=== PATIENT | male | born 1955 | race Caucasian/White ===

== ENCOUNTER 2018-09-23 08:27 | Observation (INO) | payer MEDICAID ==
[~2018-09-23] VITALS: Ht 165.1 cm; Wt 74.6 kg
[2018-09-23] MEDS ORDERED: SOD CHLORIDE 0.9% 1,000 ML IV STA (08:35)
[2018-09-23] MEDS ORDERED: KETOROLAC 30 MG INJ IV STA (08:35)
[2018-09-23] MEDS ORDERED: ONDANSETRON 4 MG INJ IV STA (08:35)
[2018-09-23] MEDS ORDERED: HYDROmorphONE 1 MG/ML SYG IV STA (08:35)
[2018-09-23] MEDS ORDERED: IBUP-1542 PO (10:13)
[2018-09-23] MEDS ORDERED: ONDA4TAB14 PO (10:13)
--- NOTE | 2018-09-23 10:14 | ERD ---
ER Documentation Chief Complaint Chief Complaint R FLANK PAIN SINCE THIS MORNING. NO NAUSEA NO VOMITNG. NO HEMATURIA HPI Patient is a 63-year-old male with diabetes who presents with flank pain. The patient has had flank pain for the past 2 hours. He denies fevers. He has no nausea or vomiting. He does not currently have a primary doctor. He has had no treatment as of yet. The pain is sharp in nature and comes and goes. ROS All systems reviewed and are negative except as per history of present illness. Medications Home Meds Active Scripts Ondansetron (Ondansetron Odt) 4 Mg Tab.rapdis, 4 MG PO Q6H PRN for NAUSEA AND/OR VOMITING, #10 TAB Prov:UMAIR OSMAN MD 09/23/18 Ibuprofen* (Motrin*) 600 Mg Tab, 600 MG PO Q6H PRN for PAIN AND OR ELEVATED TEMP, #30 TAB Prov:UMAIR OSMAN MD 09/23/18 Allergies Allergies: Coded Allergies: No Known Allergy (Unverified , 09/23/18) PMhx/Soc Medical and Surgical Hx: pt denies Medical Hx History of Surgery: No Anesthesia Reaction: No Hx Neurological Disorder: No Hx Respiratory Disorders: No Hx Cardiac Disorders: No Hx Psychiatric Problems: No Hx Miscellaneous Medical Probl: No Hx Alcohol Use: No Hx Substance Use: No Hx Tobacco Use: No Smoking Status: Never smoker FmHx Family History: No diabetes Physical Exam Vitals Vital Signs Date Temp Pulse Resp B/P (MAP) Pulse Ox O2 O2 Flow FiO2 Time Delivery Rate 09/23/18 98.8 77 18 158/101 99 08:31 (120) Physical Exam Const: Moderate distress Head: Atraumatic Eyes: Normal Conjunctiva ENT: Normal External Ears, Nose and Mouth. Neck: Full range of motion. No meningismus. Resp: Clear to auscultation bilaterally Cardio: Regular rate and rhythm, no murmurs Abd: Soft, non tender, non distended. Normal bowel sounds Skin: No petechiae or rashes Back: No midline or flank tenderness Ext: No cyanosis, or edema Neur: Awake and alert Psych: Normal Mood and Affect Result Diagram: 09/23/18 0847 09/23/18 0847 Results 24 hrs Laboratory Tests Test 09/23/18 08:47 White Blood Count 6.3 10^3/ul Red Blood Count 4.74 10^6/ul Hemoglobin 14.9 g/dl Hematocrit 42.0 % Mean Corpuscular Volume 88.6 fl Mean Corpuscular Hemoglobin 31.4 pg Mean Corpuscular Hemoglobin Concent 35.5 g/dl Red Cell Distribution Width 12.2 % Platelet Count 222 10^3/UL Mean Platelet Volume 10.6 fl Immature Granulocytes % 0.300 % Neutrophils % 47.4 % Lymphocytes % 37.7 % Monocytes % 8.9 % Eosinophils % 5.2 % Basophils % 0.5 % Nucleated Red Blood Cells % 0.0 /100WBC Immature Granulocytes # 0.020 10^3/ul Neutrophils # 3.0 10^3/ul Lymphocytes # 2.4 10^3/ul Monocytes # 0.6 10^3/ul Eosinophils # 0.3 10^3/ul Basophils # 0.0 10^3/ul Nucleated Red Blood Cells # 0.0 10^3/ul Urine Color YELLOW Urine Clarity CLEAR Urine pH 6.0 Urine Specific [place] 1.011 Urine Ketones NEGATIVE mg/dL Urine Nitrite NEGATIVE mg/dL Urine Bilirubin NEGATIVE mg/dL Urine Urobilinogen NEGATIVE mg/dL Urine Leukocyte Esterase NEGATIVE Edgardo/ul Urine Hemoglobin NEGATIVE mg/dL Urine Glucose 3+ mg/dL Urine Total Protein NEGATIVE mg/dl Sodium Level 140 mmol/L Potassium Level 4.4 mmol/L Chloride Level 103 mmol/L Carbon Dioxide Level 25 mmol/L Anion Gap 12 Blood Urea Nitrogen 17 mg/dl Creatinine 0.67 mg/dl Est Glomerular Filtrat Rate mL/min > 60 mL/min Glucose Level 323 mg/dl Calcium Level 9.9 mg/dl Total Bilirubin 0.3 mg/dl Direct Bilirubin 0.00 mg/dl Indirect Bilirubin 0.3 mg/dl Aspartate Amino Transf (AST/SGOT) 27 IU/L Alanine Aminotransferase (ALT/SGPT) 47 IU/L Alkaline Phosphatase 125 IU/L Total Protein 7.2 g/dl Albumin 4.2 g/dl Globulin 3.00 g/dl Albumin/Globulin Ratio 1.40 Lipase 50 U/L Current Medications Medications Dose Sig/[place]han Start Time Status Last (Trade) Ordered Route PRN Stop Time Admin Dose Reason Admin Sodium 1,000 ml @ Q1H STAT 09/23/18 DC 09/23/18 Chloride 1,000 mls/hr IV 08:35 09:03 09/23/18 09:34 1 mg ONCE STAT 09/23/18 DC 09/23/18 Hydromorphone IV 08:35 09:04 HCl 09/23/18 08:36 (Dilaudid) Ondansetron 4 mg ONCE STAT 09/23/18 DC 09/23/18 HCl (Zofran IV 08:35 09:04 Inj) 09/23/18 08:36 Ketorolac 30 mg ONCE STAT 09/23/18 DC 09/23/18 Tromethamine IV 08:35 09:05 (Toradol) 09/23/18 08:36 1 mg ONCE STAT 09/23/18 DC 09/23/18 Hydromorphone IV 11:13 11:31 HCl 09/23/18 11:14 (Dilaudid) Procedures/MDM EKG read by me: Rate/Rhythm: Regular rate and rhythm at a rate of 78 Intervals: Normal Impression: No evidence of ischemia or arrhythmia CT abdomen and pelvis read by radiology. Patient is a 63-year-old male with diabetes who presents with flank pain. Laboratory studies were basically normal. CT scan shows likely recently passed kidney stone. I see no signs of surgical process at this time. I doubt appendicitis, cholecystitis, pancreatitis, bowel obstruction. The patient will be discharged home to follow-up with eye doctor within 2 to 3 days. The patient will be given a prescription for pain medication and Flomax. The patient can return for worsening symptoms. Departure Diagnosis: Primary Impression: Kidney stone Additional Impression: Flank pain Condition: Fair Patient Instructions: Kidney Stone W/ Colic Referrals: SUSIE TRINH MD Additional Instructions: Llame al doctor MAANA y kayli mer MELCHOR PARA DENTRO DE 2-3 ALDRICH.Dgale a la secretaria que nosotros le instruimos hacer esta melchor.Avise o llame si garcia condicin se empeora antes de la melchor. Regresa aqui si peor o no mejor. UMAIR OSMAN MD Sep 23, 2018 10:14
[2018-09-23] MEDS ORDERED: HYDROmorphONE 2 MG/ML SYG IV STA (11:13)
[2018-09-23] MEDS ORDERED: NALO4SPR NS (12:36)
[2018-09-23] MEDS ORDERED: HYDR-3980 PO (12:36)
[2018-09-23] MEDS ORDERED: morphine 4 MG/ML VIAL IV STA (13:01)
[2018-09-23] MEDS ORDERED: HYDROCODONE/APAP (5/325) TAB PO PRN (15:00)
[2018-09-23] MEDS ORDERED: ALBUTEROL/IPRATROPIUM (NEB) 3 ML AMP HHN PRN (15:00)
[2018-09-23] MEDS: CEFTRIAXONE 1 GM/50 ML (PMX) 50 ML IVPB SCH ×2 (15:00→21:06)
[2018-09-23] MEDS ORDERED: NACL 0.9% 3 ML SYG IV SCH (15:00)
[2018-09-23] MEDS ORDERED: ONDANSETRON 4 MG INJ IV PRN (15:00)
[2018-09-23] MEDS ORDERED: NITROGLYCERIN (SL) 0.4 MG TAB SL PRN (15:00)
[2018-09-23] MEDS ORDERED: DOCUSATE SODIUM 100 MG CAP PO PRN (15:00)
[2018-09-23] MEDS ORDERED: hydrALAzine 20 MG INJ IV PRN (15:00)
[2018-09-23] MEDS ORDERED: LORAZEPAM 2 MG INJ IV PRN (15:00)
[2018-09-23] MEDS ORDERED: morphine 2 MG INJ IV PRN (15:00)
[2018-09-23] MEDS ORDERED: HYDROCODONE/APAP (10/325) TAB PO PRN (15:00)
[2018-09-23] MEDS ORDERED: ACETAMINOPHEN 325 MG TAB PO PRN (15:00)
[2018-09-23] MEDS ORDERED: MAGNESIUM HYDROXIDE 30ML CUP PO PRN (15:00)
[2018-09-23] MEDS ORDERED: SOD CHLORIDE 0.9% 100 ML ONE (15:48)
[2018-09-23] MEDS ORDERED: IOHEXOL 300MG/ML 150 ML BTL ONE (15:48)
--- NOTE | 2018-09-23 16:10 | HP ---
DATE OF ADMISSION: 09/23/2018 CHIEF COMPLAINT: Sudden onset right flank pain. HISTORY OF PRESENT ILLNESS: A 63-year-old male with past medical history of diabetes who presents wi th right flank pain. Symptoms occurred suddenly earlier today about 2 or 3 hours prior to admission. The patient apparently had never had this kind of pain before. Denied any nausea, vomiting, no fev ers or chills, no upper or lower GI bleeding, no hematuria or dysuria, no diarrhea or constipation. He described the pain as sharp in nature, coming and going. When he came in today, he had a CT scan abdomen and pelvis performed that showed mild right hydronephrosis and hydroureter with abrupt taperi ng of the distal ureter at the pelvic brim, but no renal, ureteral or bladder calculi were seen. CT urogram is recommended for further evaluation and that has been ordered now and a call has been made out to the urologist to come evaluate the patient as the patient may either have a retained stone or may have already passed the stone. 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 Short interval foll owup CT of the chest is recommended to ensure stability. The patient was given pain control medicati ons and IV fluids in the ER as well today. PAST MEDICAL HISTORY: As stated above. ALLERGIES: No known drug allergies. MEDICATIONS AT HOME: 1. [place] 10/325 q.6h. p.r.n. 2. Motrin 600 mg q.6h. p.r.n. 3. Zofran 4 mg q.6h. p.r.n. PAST SURGICAL HISTORY: Apparently none. SOCIAL HISTORY: Negative for smoking or drinking, or IV drug abuse. FAMILY HISTORY: Noncontributory. PHYSICAL EXAMINATION: VITAL SIGNS: T-max 98.8, pulse 77, respirations 18, blood pressure 158/101, satting at 99% on room a ir. GENERAL: The patient is lying in bed, but appears to be in mild to moderate distress. HEENT: Pupils are equal, round, reactive to light. Extraocular muscles intact. NECK: Supple, no thyromegaly. LUNGS: Clear to auscultation bilaterally. CARDIOVASCULAR: S1, S2 heard. No rubs or gallops. ABDOMEN: Soft, nontender, nondistended. Normal bowel sounds. No rebound or guarding. There is kelvin e tenderness to palpation in the right flank area. MUSCULOSKELETAL: No lower extremity edema bilaterally. NEUROLOGIC: No focal deficits. LABORATORIES: CBC is normal. The comprehensive metabolic panel was normal except the sugars are hig h at 323. Lipase is normal. UA shows negative nitrites, negative leukocyte esterase, but there is 3 + glucose. We mentioned the CT abdomen and pelvis findings. ASSESSMENT AND PLAN: A 63-year-old male coming in with sudden onset right flank pain, prior history of diabetes, rule out renal calculi versus others. 1. Right flank pain, possibly secondary to either retained stone or passing stone recently. The pat ient is still having significant pain symptoms. We will admit the patient, put him on pain control m edications, IV fluids, antiemetic medications. Keep n.p.o. except meds for now. Follow up TSH, A1c, lipid panel. We will obtain a urology consult as well. Consider PT consult. More importantly, we will order CT urogram to further investigate his initial CT scan findings. Keep patient on broad spe ctrum antibiotics. 2. Diabetes. Sugars appeared slightly elevated on admission. Follow up A1c. Put him on sliding sc gabo insulin. Consider Lantus as well. 3. Lovenox. 4. DVT prophylaxis, SCDs. Dictated By: MILLICENT DELVALLE Conf#: [id number] DID#: [id number]
[2018-09-23] MEDS ORDERED: GLUCOSE GEL 15 GRAM TUBE PO PRN ×2 (16:30)
[2018-09-23] MEDS ORDERED: GLUCOSE GEL 15 GRAM TUBE BUCCAL PRN (16:30)
[2018-09-23] MEDS ORDERED: DEXTROSE 50% 50 ML SYRINGE IV PRN ×2 (16:30)
[2018-09-23] MEDS ORDERED: GLUCAGON 1 MG INJ IM PRN (16:30)
--- NOTE | 2018-09-23 20:14 | CONS ---
Assessment/Plan Assessment/Plan Hospital Course (Demo Recall) 63-year-old male with past medical history of diabetes presented with right flank pain. Symptoms occurred suddenly about 2 to 3 hours prior to admission. No similar pain before. The patient denies any nausea or vomiting and there is no fever or chills. He denies any hematuria or dysuria. No diarrhea or constipation. He described the pain as sharp in nature, coming and going. The pain is worse with movement. As a matter of fact it started when he was trying to tie his shoe laces. Any twisting or bending will cause the pain. CT scan of the abdomen and pelvis was done and reported as: 1. 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 No evidence of obstructive ureteral stone or mass is seen. There is no urolithiasis or evidence of enhancing urinary mass. 2. Mildly enlarged prostate - correlate with PSA level. 3. Small bilateral fat containing inguinal hernias, without incarceration. Urine analysis was negative except for 3+ glucose I do not think he had a stone or passed the stone. The mild hydronephrosis is because of the duplication of the collecting system. If there was a stone or if he did pass a stone one would expect the urine to have some occult blood in it. His pain is more of muscular pain and it is worse with movements, bending, twisting. Did recommend to give him muscle relaxant and ibuprofen. Consultation Date/Type/Reason Admit Date/Time Date of Consultation: Sep 23, 2018 Type of Consult Urology Reason for Consultation Right flank pain Requesting Provider: MILLICENT HARRINGTON Date/Time of Note DATE: 09/23/18 TIME: 20:03 Hx of Present Illness 63-year-old male with past medical history of diabetes presented with right flank pain. Symptoms occurred suddenly about 2 to 3 hours prior to admission. No similar pain before. The patient denies any nausea or vomiting and there is no fever or chills. He denies any hematuria or dysuria. No diarrhea or constipation. He described the pain as sharp in nature, coming and going. The pain is worse with movement. As a matter of fact it started when he was trying to tie his shoe laces. Any twisting or bending will cause the pain. CT scan of the abdomen and pelvis was done and reported as: 1. 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 No evidence of obstructive ureteral stone or mass is seen. There is no urolithiasis or evidence of enhancing urinary mass. 2. Mildly enlarged prostate - correlate with PSA level. 3. Small bilateral fat containing inguinal hernias, without incarceration. Urine analysis was negative except for 3+ glucose. Constitutional: no complaints Eyes: no complaints ENT: no complaints Respiratory: no complaints; No wheezing Cardiovascular: No chest pain Gastrointestinal: pain (Right flank); No nausea, No vomiting Genitourinary: flank pain; No dysuria, No hematuria Musculoskeletal: back pain (Right side, pain is worse with movements, bending twisting and even trying to take off his pants would cause him pain.) Skin: no complaints Neurologic: no complaints Endocrine: no complaints Psychological: no complaints Immunologic: no complaints Past Medical History Medical History: diabetes Home Meds Active Scripts Naloxone HCl nasal spray (Narcan 4 mg/0.1 mL nasal) 4 Mg [place], 4 MG NS .Q2MIN PRN for OPIOID OVERDOSE, #2 SPRAY [place] entire contents in one nostril, may repeat in alternate nostril in 2-3 minutes if no or minimal response Prov:UMAIR OSMAN MD 09/23/18 Hydrocodone/Acetaminophen ([place] 10-325 Tablet) 1 Each Tablet, 1 TAB PO Q6H PRN for PAIN, #7 TAB Prov:UMAIR OSMAN MD 09/23/18 Ondansetron (Ondansetron Odt) 4 Mg Tab.rapdis, 4 MG PO Q6H PRN for NAUSEA AND/OR VOMITING, #10 TAB Prov:UMAIR OSMAN MD 09/23/18 Ibuprofen* (Motrin*) 600 Mg Tab, 600 MG PO Q6H PRN for PAIN AND OR ELEVATED TEMP, #30 TAB Prov:UMAIR OSMAN MD 09/23/18 Medications Current Medications IV Flush (NS 3 ml) 3 ml PER PROTOCOL IV ; Start 09/23/18 at 15:00 Ondansetron HCl (Zofran Inj) 4 mg Q6H PRN IV NAUSEA/VOMITING; Start 09/24/18 at 15:00 Acetaminophen (Tylenol Tab) 650 mg Q6H PRN PO .PAIN 1-3 OR TEMP; Start 09/24/18 at 15:00 Acetaminophen/ Hydrocodone Bitart ([place] (5/325)) 1 tab Q6H PRN PO .MOD PAIN 4- 6; Start 09/23/18 at 15:00 Morphine Sulfate (morphine) 2 mg Q4H PRN IV .SEVERE PAIN 7-10; Start 09/23/18 at 15:00 Docusate Sodium (Colace) 100 mg Q12H PRN PO .CONSTIPATION; Start 09/23/18 at 15:00 Magnesium Hydroxide (Milk Of Mag) 30 ml DAILY PRN PO .CONSTIPATION; Start 09/23/18 at 15:00 Lorazepam (Ativan) 0.5 mg Q6H PRN IV ANXIETY; Start 09/23/18 at 15:00 Sodium Chloride 1,000 ml @ 100 mls/hr Q10H IV ; Start 09/23/18 at 14:48 Albuterol/ Ipratropium (Duoneb) 3 ml Q4H RESP THERAPY PRN HHN SHORTNESS OF BREATH; Start 09/23/18 at 15:00 Hydralazine HCl (Apresoline) 10 mg Q6H PRN IV ELEVATED BP: SBP > 180; Start 09/23/18 at 15:00 Ceftriaxone Sodium 50 ml @ 100 mls/hr Q24H IVPB ; Start 09/23/18 at 15:00 Nitroglycerin (Nitroglycerin (Sl Tab) 0.4 Mg) 1 tab Q5M PRN SL ANGINA; Start 09/23/18 at 15:00 Acetaminophen/ Hydrocodone Bitart ([place] (10325)) 1 tab Q6H PRN PO SEVERE PAIN LEVEL 7-10; Start 09/23/18 at 15:00 Diagnostic Test (Pha) (Accu-Chek) 1 ea 02 XX ; Start 09/24/18 at 02:00 Insulin Aspart (Novolog Insulin Pen) NOVOLOG *MILD* ALGORI... Q4 SC ; Start 09/23/18 at 17:00 Miscellaneous Information 1 ea NOTE XX ; Start 09/23/18 at 16:30 Glucose (Glutose) 15 gm Q15M PRN PO DECREASED GLUCOSE; Start 09/23/18 at 16:30 Glucose (Glutose) 22.5 gm Q15M PRN PO DECREASED GLUCOSE; Start 09/23/18 at 16:30 Dextrose (D50w Syringe) 25 ml Q15M PRN IV DECREASED GLUCOSE; Start 09/23/18 at 16:30 Dextrose (D50w Syringe) 50 ml Q15M PRN IV DECREASED GLUCOSE; Start 09/23/18 at 16:30 Glucagon (Glucagen) 1 mg Q15M PRN IM DECREASED GLUCOSE; Start 09/23/18 at 16:30 Glucose (Glutose) 15 gm Q15M PRN BUCCAL DECREASED GLUCOSE; Start 09/23/18 at 16:30 Allergies: Coded Allergies: No Known Allergy (Unverified , 09/23/18) Past Surgical History Past Surgical Hx: other (Left inguinal hernia repair) Social History Alcohol Use: rarely Smoking Status: Light tobacco smoker (Smokes about 5 cigarettes a day) Drug Use: none Exam/Review of Systems Exam Vitals Vital Signs Date Temp Pulse Resp B/P (MAP) Pulse Ox O2 O2 Flow FiO2 Time Delivery Rate 09/23/18 68 16 115/75 98 Room Air 18:59 (88) 09/23/18 98.8 2.0 18:00 Constitutional: alert, oriented Psych: no complaints Head: normocephalic Eyes: nl conjunctiva ENMT: nl external ears & nose Neck: supple Respiratory: normal air movement; No wheezing Cardiovascular: No jugular venous distention (JVD) Gastrointestinal: soft Genitourinary - Male: nl penis, nl scrotum Musculoskeletal: other (Right flank area pain that is worse with movement, bending, twisting.) Extremities: No calf tenderness Neurological: nl mental status Skin: nl turgor Results Result Diagram: 09/23/18 0847 09/23/18 0847 Results 24hrs Laboratory Tests Test 09/23/18 08:47 White Blood Count 6.3 Red Blood Count 4.74 Hemoglobin 14.9 Hematocrit 42.0 Mean Corpuscular Volume 88.6 Mean Corpuscular Hemoglobin 31.4 Mean Corpuscular Hemoglobin Concent 35.5 Red Cell Distribution Width 12.2 Platelet Count 222 Mean Platelet Volume 10.6 H Immature Granulocytes % 0.300 Neutrophils % 47.4 Lymphocytes % 37.7 Monocytes % 8.9 Eosinophils % 5.2 Basophils % 0.5 Nucleated Red Blood Cells % 0.0 Immature Granulocytes # 0.020 Neutrophils # 3.0 Lymphocytes # 2.4 Monocytes # 0.6 Eosinophils # 0.3 Basophils # 0.0 Nucleated Red Blood Cells # 0.0 Urine Color YELLOW Urine Clarity CLEAR Urine pH 6.0 Urine Specific [place] 1.011 Urine Ketones NEGATIVE Urine Nitrite NEGATIVE Urine Bilirubin NEGATIVE Urine Urobilinogen NEGATIVE Urine Leukocyte Esterase NEGATIVE Urine Hemoglobin NEGATIVE Urine Glucose 3+ H Urine Total Protein NEGATIVE Sodium Level 140 Potassium Level 4.4 Chloride Level 103 Carbon Dioxide Level 25 Anion Gap 12 Blood Urea Nitrogen 17 Creatinine 0.67 Est Glomerular Filtrat Rate mL/min > 60 Glucose Level 323 H Calcium Level 9.9 Total Bilirubin 0.3 Direct Bilirubin 0.00 Indirect Bilirubin 0.3 Aspartate Amino Transf (AST/SGOT) 27 Alanine Aminotransferase (ALT/SGPT) 47 Alkaline Phosphatase 125 H Total Protein 7.2 Albumin 4.2 Globulin 3.00 Albumin/Globulin Ratio 1.40 Lipase 50 Free Thyroxine 1.[address] scan of the abdomen and pelvis: 1. 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 No evidence of obstructive ureteral stone or mass is seen. There is no urolithiasis or evidence of enhancing urinary mass. 2. Mildly enlarged prostate - correlate with PSA level. 3. Small bilateral fat containing inguinal hernias, without incarceration Medications Medication Current Medications IV Flush (NS 3 ml) 3 ml PER PROTOCOL IV ; Start 09/23/18 at 15:00 Ondansetron HCl (Zofran Inj) 4 mg Q6H PRN IV NAUSEA/VOMITING; Start 09/24/18 at 15:00 Acetaminophen (Tylenol Tab) 650 mg Q6H PRN PO .PAIN 1-3 OR TEMP; Start 09/24/18 at 15:00 Acetaminophen/ Hydrocodone Bitart ([place] (5/325)) 1 tab Q6H PRN PO .MOD PAIN 4- 6; Start 09/23/18 at 15:00 Morphine Sulfate (morphine) 2 mg Q4H PRN IV .SEVERE PAIN 7-10; Start 09/23/18 at 15:00 Docusate Sodium (Colace) 100 mg Q12H PRN PO .CONSTIPATION; Start 09/23/18 at 15:00 Magnesium Hydroxide (Milk Of Mag) 30 ml DAILY PRN PO .CONSTIPATION; Start 09/23/18 at 15:00 Lorazepam (Ativan) 0.5 mg Q6H PRN IV ANXIETY; Start 09/23/18 at 15:00 Sodium Chloride 1,000 ml @ 100 mls/hr Q10H IV ; Start 09/23/18 at 14:48 Albuterol/ Ipratropium (Duoneb) 3 ml Q4H RESP THERAPY PRN HHN SHORTNESS OF BREATH; Start 09/23/18 at 15:00 Hydralazine HCl (Apresoline) 10 mg Q6H PRN IV ELEVATED BP: SBP > 180; Start 09/23/18 at 15:00 Ceftriaxone Sodium 50 ml @ 100 mls/hr Q24H IVPB ; Start 09/23/18 at 15:00 Nitroglycerin (Nitroglycerin (Sl Tab) 0.4 Mg) 1 tab Q5M PRN SL ANGINA; Start 09/23/18 at 15:00 Acetaminophen/ Hydrocodone Bitart ([place] (10325)) 1 tab Q6H PRN PO SEVERE PAIN LEVEL 7-10; Start 09/23/18 at 15:00 Diagnostic Test (Pha) (Accu-Chek) 1 ea 02 XX ; Start 09/24/18 at 02:00 Insulin Aspart (Novolog Insulin Pen) NOVOLOG *MILD* ALGORI... Q4 SC ; Start 09/23/18 at 17:00 Miscellaneous Information 1 ea NOTE XX ; Start 09/23/18 at 16:30 Glucose (Glutose) 15 gm Q15M PRN PO DECREASED GLUCOSE; Start 09/23/18 at 16:30 Glucose (Glutose) 22.5 gm Q15M PRN PO DECREASED GLUCOSE; Start 09/23/18 at 16:30 Dextrose (D50w Syringe) 25 ml Q15M PRN IV DECREASED GLUCOSE; Start 09/23/18 at 16:30 Dextrose (D50w Syringe) 50 ml Q15M PRN IV DECREASED GLUCOSE; Start 09/23/18 at 16:30 Glucagon (Glucagen) 1 mg Q15M PRN IM DECREASED GLUCOSE; Start 09/23/18 at 16:30 Glucose (Glutose) 15 gm Q15M PRN BUCCAL DECREASED GLUCOSE; Start 09/23/18 at 16:30 SUSIE TRINH MD Sep 23, 2018 20:13
[2018-09-23 20:20] VITALS: BP 131/71; PULSE 73; RESP 18
[2018-09-23] MEDS: INSULIN ASPART [NOVOLOG] 3 ML PEN SC SCH ×2 (20:20→22:17)
[2018-09-23] MEDS: SOD CHLORIDE 0.9% 1,000 ML IV SCH ×2 (20:20→20:40)
[2018-09-23 20:53] VITALS: Ht 165.1 cm; Wt 74.6 kg
[2018-09-23] MEDS: CYCLOBENZAPRINE 10 MG TAB PO SCH (21:48)
[2018-09-23] MEDS: IBUPROFEN 600 MG TAB PO SCH (21:51)
[2018-09-24] MEDS ORDERED: ACCU-CHEK XX SCH (02:00)
[2018-09-24 03:10] VITALS: BP 115/59; PULSE 61; RESP 18
[2018-09-24] MEDS: CYCLOBENZAPRINE 10 MG TAB PO SCH ×2 (05:35→13:24)
[2018-09-24] MEDS: IBUPROFEN 600 MG TAB PO SCH ×3 (05:36→13:01)
[2018-09-24 07:06] VITALS: BP 120/56; PULSE 53; RESP 16
[2018-09-24] MEDS: SOD CHLORIDE 0.9% 1,000 ML IV SCH ×2 (07:21→10:48)
[2018-09-24] MEDS: INSULIN ASPART [NOVOLOG] 3 ML PEN SC SCH ×2 (09:27→13:21)
--- NOTE | 2018-09-24 12:23 | CONS ---
Consult Date/Type/Reason Admit Date/Time Sep 23, 2018 at 14:32 Initial Consult Date 09/23/18 Type of Consultation: Urology Reason for Consultation Right flank pain Requesting Provider: MILLICENT HARRINGTON Date/Time of Note DATE: 09/24/18 TIME: 12:19 Subjective Patient feeling much better and presently he denies having any pain. Objective Vitals Vital Signs Date Temp Pulse Resp B/P (MAP) Pulse Ox O2 O2 Flow FiO2 Time Delivery Rate 09/24/18 98.1 53 16 120/56 100 Room Air 07:06 (77) 09/23/18 2.0 18:00 Intake and Output 09/23/18 09/23/18 09/24/18 1515:00 23:00 07:00 IntakeIntake Total 170 ml 920 ml OutputOutput Total 600 ml BalanceBalance -430 ml 920 ml Exam No flank tenderness, abdomen is soft. Results/Medications Result Diagram: 09/24/18 0425 09/24/18 0425 Results 24 hrs Laboratory Tests Test 09/23/18 21:47 09/24/18 01:27 09/24/18 04:25 09/24/18 08:52 Bedside Glucose 231 H 249 H 196 White Blood Count 7.4 Red Blood Count 4.22 L Hemoglobin 13.2 L Hematocrit 37.6 L Mean Corpuscular 89.1 Volume Mean Corpuscular 31.3 Hemoglobin Mean Corpuscular 35.1 Hemoglobin Concent Red Cell 12.8 Distribution Width Platelet Count 201 Mean Platelet Volume 11.1 H Immature 0.300 Granulocytes % Neutrophils % 49.0 Lymphocytes % 37.4 Monocytes % 7.5 Eosinophils % 5.3 Basophils % 0.5 Nucleated Red Blood 0.0 Cells % Immature 0.020 Granulocytes # Neutrophils # 3.6 Lymphocytes # 2.8 Monocytes # 0.6 Eosinophils # 0.4 Basophils # 0.0 Nucleated Red Blood 0.0 Cells # Sodium Level 139 Potassium Level 4.1 Chloride Level 107 Carbon Dioxide Level 26 Anion Gap 6 Blood Urea Nitrogen 20 Creatinine 0.66 Est Glomerular > 60 Filtrat Rate mL/min Glucose Level 247 H Hemoglobin A1c 10.6 H Calcium Level 8.4 Phosphorus Level 3.6 Magnesium Level 1.9 Triglycerides Level 236 H Cholesterol Level 107 LDL Cholesterol, 39 Calculated HDL Cholesterol 21 L Cholesterol/HDL 5.0 Ratio Thyroid Stimulating 3.530 Hormone (TSH) [place] Meds Active Scripts Naloxone HCl nasal spray (Narcan 4 mg/0.1 mL nasal) 4 Mg [place], 4 MG NS .Q2MIN PRN for OPIOID OVERDOSE, #2 SPRAY [place] entire contents in one nostril, may repeat in alternate nostril in 2-3 minutes if no or minimal response Prov:UMAIR OSMAN MD 09/23/18 Hydrocodone/Acetaminophen ([place] 10-325 Tablet) 1 Each Tablet, 1 TAB PO Q6H PRN for PAIN, #7 TAB Prov:UMAIR OSMAN MD 09/23/18 Ondansetron (Ondansetron Odt) 4 Mg Tab.rapdis, 4 MG PO Q6H PRN for NAUSEA AND/OR VOMITING, #10 TAB Prov:UMAIR OSMAN MD 09/23/18 Ibuprofen* (Motrin*) 600 Mg Tab, 600 MG PO Q6H PRN for PAIN AND OR ELEVATED TEMP, #30 TAB Prov:UMAIR OSMAN MD 09/23/18 Medications Current Medications IV Flush (NS 3 ml) 3 ml PER PROTOCOL IV ; Start 09/23/18 at 15:00 Ondansetron HCl (Zofran Inj) 4 mg Q6H PRN IV NAUSEA/VOMITING; Start 09/24/18 at 15:00 Acetaminophen (Tylenol Tab) 650 mg Q6H PRN PO .PAIN 1-3 OR TEMP; Start 09/24/18 at 15:00 Acetaminophen/ Hydrocodone Bitart ([place] (5/325)) 1 tab Q6H PRN PO .MOD PAIN 4- 6; Start 09/23/18 at 15:00 Morphine Sulfate (morphine) 2 mg Q4H PRN IV .SEVERE PAIN 7-10; Start 09/23/18 at 15:00 Docusate Sodium (Colace) 100 mg Q12H PRN PO .CONSTIPATION; Start 09/23/18 at 15:00 Magnesium Hydroxide (Milk Of Mag) 30 ml DAILY PRN PO .CONSTIPATION; Start 09/23/18 at 15:00 Lorazepam (Ativan) 0.5 mg Q6H PRN IV ANXIETY; Start 09/23/18 at 15:00 Sodium Chloride 1,000 ml @ 100 mls/hr Q10H IV Last administered on 09/24/18at 07:21; Admin Dose 100 MLS/HR; Start 09/23/18 at 14:48 Albuterol/ Ipratropium (Duoneb) 3 ml Q4H RESP THERAPY PRN HHN SHORTNESS OF BREATH; Start 09/23/18 at 15:00 Hydralazine HCl (Apresoline) 10 mg Q6H PRN IV ELEVATED BP: SBP > 180; Start 09/23/18 at 15:00 Ceftriaxone Sodium 50 ml @ 100 mls/hr Q24H IVPB Last administered on 09/23/18at 21:06; Admin Dose 100 MLS/HR; Start 09/23/18 at 15:00 Nitroglycerin (Nitroglycerin (Sl Tab) 0.4 Mg) 1 tab Q5M PRN SL ANGINA; Start 09/23/18 at 15:00 Acetaminophen/ Hydrocodone Bitart ([place] (10325)) 1 tab Q6H PRN PO SEVERE PAIN LEVEL 7-10 Last administered on 09/23/18at 21:06; Admin Dose 1 TAB; Start 09/23/18 at 15:00 Diagnostic Test (Pha) (Accu-Chek) 1 ea 02 XX ; Start 09/24/18 at 02:00 Miscellaneous Information 1 ea NOTE XX ; Start 09/23/18 at 16:30 Glucose (Glutose) 15 gm Q15M PRN PO DECREASED GLUCOSE; Start 09/23/18 at 16:30 Glucose (Glutose) 22.5 gm Q15M PRN PO DECREASED GLUCOSE; Start 09/23/18 at 16:30 Dextrose (D50w Syringe) 25 ml Q15M PRN IV DECREASED GLUCOSE; Start 09/23/18 at 16:30 Dextrose (D50w Syringe) 50 ml Q15M PRN IV DECREASED GLUCOSE; Start 09/23/18 at 16:30 Glucagon (Glucagen) 1 mg Q15M PRN IM DECREASED GLUCOSE; Start 09/23/18 at 16:30 Glucose (Glutose) 15 gm Q15M PRN BUCCAL DECREASED GLUCOSE; Start 09/23/18 at 16:30 Cyclobenzaprine HCl (Flexeril) 10 mg Q8 PO Last administered on 09/24/18at 05:35; Admin Dose 10 MG; Start 09/23/18 at 22:00 Ibuprofen (Motrin) 600 mg Q6 PO Last administered on 09/24/18at 05:36; Admin Dose 600 MG; Start 09/23/18 at 21:00 Insulin Aspart (Novolog Insulin Pen) NOVOLOG *MILD* ALGORITHM WITH MEALS BEDTIME SC Last administered on 09/24/18at 09:27; Admin Dose 2 UNIT; Start 09/24/18 at 07:50 Assessment/Plan Hospital Course (Demo Recall) 63-year-old male with past medical history of diabetes presented with right flank pain. Symptoms occurred suddenly about 2 to 3 hours prior to admission. No similar pain before. The patient denies any nausea or vomiting and there is no fever or chills. He denies any hematuria or dysuria. No diarrhea or constipation. He described the pain as sharp in nature, coming and going. The pain is worse with movement. As a matter of fact it started when he was trying to tie his shoe laces. Any twisting or bending will cause the pain. CT scan of the abdomen and pelvis was done and reported as: 1. 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 No evidence of obstructive ureteral stone or mass is seen. There is no urolithiasis or evidence of enhancing urinary mass. 2. Mildly enlarged prostate - correlate with PSA level. 3. Small bilateral fat containing inguinal hernias, without incarceration. Urine analysis was negative except for 3+ glucose I do not think he had a stone or passed the stone. The mild hydronephrosis is because of the duplication of the collecting system. If there was a stone or if he did pass a stone one would expect the urine to have some occult blood in it. His pain is more of muscular pain and it is worse with movements, bending, twisting. The patient was started on muscle relaxant and ibuprofen and he is feeling much better. In fact he denies having any pain now and asking if he is going to be discharged. The urine cultures showed no growth. Urologically he is okay and may be discharged. SUSIE TRINH MD Sep 24, 2018 12:23
--- NOTE | 2018-09-24 13:57 | PDOCDIS ---
Discharge Instructions CONDITION [id number] Patient Condition: [id number] Stable HOME CARE INSTRUCTIONS: [id number] Diet Instructions: [id number] Low Fat /Cholesterol ACTIVITY: [id number] Activity Restrictions: [id number] Slowly Increase Activity Rest between Activity Avoid heavy lifting FOLLOW UP/APPOINTMENTS Follow-up Plan Please take your medications as prescribed, see her doctor in the clinic in the next 1 week. MILLICENT HARRINGTON Sep 24, 2018 13:57
[2018-09-24] MEDS ORDERED: METF-480 PO (14:00)
[2018-09-24] MEDS ORDERED: CYCL10TA7 PO (14:00)
[2018-09-24] MEDS ORDERED: IBUP-1542 PO (14:00)
--- NOTE | 2018-09-24 14:11 | DS ---
Date/Time of Note Date/Time of Note DATE: 09/24/18 TIME: 14:07 Discharge Summary Admission/Discharge Info Admit Date/Time Sep 23, 2018 at 14:32 Discharge Date/Time Discharge Diagnosis 1. Right flank pain-likely secondary musculoskeletal pain, improving with ib uprofen and Flexeril. CT imaging studies did not show any acute findings including no signs of kidney stones. Urine infectious work-up negative. 2. Diabetes-A1c equals 10.6 -started on metformin Patient Condition: Stable Procedures A:CT Abdomen and Pelvis without contrast. 1. Mild right hydronephrosis and hydroureter with abrupt tapering of the distal ureter at the pelvic brim. No renal, ureteral or bladder calculi are seen. CT urogram is recommended for further evaluation. 2. Duplex left renal collecting system. The ureters appear to converge distally. No hydronephrosis or hydroureter is seen. 3. Colonic diverticulosis. 4. Small bilateral fat containing inguinal hernias. 5. 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 Short interval follow-up CT of the chest is recommended to ensure stability. B: CT Abdomen and Pelvis without and with IV contrast - CT Urogram IMPRESSION: 1. 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 No evidence of obstructive ureteral stone or mass is seen. There is no urolithiasis or evidence of enhancing urinary mass. 2. Mildly enlarged prostate - correlate with PSA level. 3. Small bilateral fat containing inguinal hernias, without incarceration. Hx of Present Illness 63-year-old male with past medical history of diabetes who presents with right flank pain. Symptoms occurred suddenly earlier today about 2 or 3 hours prior to admission. The patient apparently had never had this kind of pain before. Denied any nausea, vomiting, no fevers or chills, no upper or lower GI bleeding, no hematuria or dysuria, no diarrhea or constipation. He described the pain as sharp in nature, coming and going. When he came in today, he had a CT scan abdomen and pelvis performed that showed mild right hydronephrosis and hydroureter with abrupt tapering of the distal ureter at the pelvic brim, but no renal, ureteral or bladder calculi were seen. CT urogram is recommended for further evaluation and that has been ordered now and a call has been made out to the urologist to come evaluate the patient as the patient may either have a retained stone or may have already passed the stone. 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 Short interval followup CT of the chest is recommended to ensure stability. The patient was given pain control medications and IV fluids in the ER as well today Hospital Course Patient was admitted to medical surgical unit and seen by urology team during his hospital stay. He was started on pain control medications and smooth muscle relaxants. Patient symptoms improved. The CT imaging studies that were performed did not show any acute findings. Urology team felt that this source the patient's right flank pain was likely muscular skeletal in origin, no signs of any kidney stones, urine test did not show any signs of any infections. Patient was eventually able to amply, tolerated p.o. diet. Patient follows slightly elevated triglyceride levels but the rest of his lipid panel was normal. A1c was 10.6 and sugars were slightly elevated, improved with insulin. Patient will be discharged home today in preparation. He will be started on diabetic medications, as well as pain control medications for the right flank pain. See below for list of discharge medications. Home Meds Active Scripts Metformin* (Glucophage*) 850 Mg Tablet, 850 MG PO WITH BREAKFAST DINNE, #60 TAB 3 Refills Prov:RAYSHAWN HARRINGTONMILLICENT S. 09/24/18 Cyclobenzaprine Hcl* (Cyclobenzaprine Hcl*) 10 Mg Tablet, 10 MG PO Q8, #90 TAB 3 Refills Prov:RAYSHAWN HARRINGTONMILLICENT S. 09/24/18 Ibuprofen* (Motrin*) 600 Mg Tab, 600 MG PO Q6H PRN for PAIN AND OR ELEVATED TEMP, #30 TAB Prov:VANESSA HARRINGTONP S. 09/24/18 Discontinued Scripts Naloxone HCl nasal spray (Narcan 4 mg/0.1 mL nasal) 4 Mg [place], 4 MG NS .Q2MIN PRN for OPIOID OVERDOSE, #2 SPRAY [place] entire contents in one nostril, may repeat in alternate nostril in 2-3 minutes if no or minimal response Prov:UMAIR OSMAN MD 09/23/18 Hydrocodone/Acetaminophen ([place] 10-325 Tablet) 1 Each Tablet, 1 TAB PO Q6H PRN for PAIN, #7 TAB Prov:UMAIR OSMAN MD 09/23/18 Ondansetron (Ondansetron Odt) 4 Mg Tab.rapdis, 4 MG PO Q6H PRN for NAUSEA AND/OR VOMITING, #10 TAB Prov:UMAIR OSMAN MD 09/23/18 Follow-up Plan Please take your medications as prescribed, see her doctor in the clinic in the next 1 week. Primary Care Provider Care Physician No Primary Time spent on discharge: > 30 minutes Pending Labs Laboratory Tests Test 09/23/18 21:47 09/24/18 01:27 09/24/18 04:25 09/24/18 08:52 Bedside 231 249 196 Glucose mg/dL (70-220) mg/dL (70-220) mg/dL (70-220) White Blood 7.4 Count 10^3/ul (4.8-1 0.8) Red Blood 4.22 Count 10^6/ul (4.70- 6.10) Hemoglobin 13.2 g/dl (14.0-18. 0) Hematocrit 37.6 % (42.0-52.0) Mean 89.1 Corpuscular fl (82.0-101.0 Volume ) Mean 31.3 Corpuscular pg (29.0-33.0) Hemoglobin Mean 35.1 Corpuscular g/dl (32.0-37. Hemoglobin Conc 0) ent Red Cell 12.8 Distribution % (11.5-14.5) Width Platelet Count 201 10^3/UL (140-4 15) Mean Platelet 11.1 Volume fl (7.4-10.4) Immature 0.300 Granulocytes % % (0.001-0.429 ) Neutrophils % 49.0 % (39.0-77.0) Lymphocytes % 37.4 % (15.0-51.0) Monocytes % 7.5 % (0.0-11.0) Eosinophils % 5.3 % (0.0-7.0) Basophils % 0.5 % (0.0-2.0) Nucleated Red 0.0 Blood Cells % /100WBC (0.0-0 .0) Immature 0.020 Granulocytes # 10^3/ul (0.0-0 .031) Neutrophils # 3.6 10^3/ul (1.6-7 .5) Lymphocytes # 2.8 10^3/ul (0.8-2 .9) Monocytes # 0.6 10^3/ul (0.3-0 .9) Eosinophils # 0.4 10^3/ul (0.0-0 .5) Basophils # 0.0 10^3/ul (0.0-0 .1) Nucleated Red 0.0 Blood Cells # 10^3/ul (0.0-0 .0) Sodium Level 139 mmol/L (135-14 4) Potassium 4.1 Level mmol/L (3.5-5. 1) Chloride Level 107 mmol/L (97-110 ) Carbon Dioxide 26 Level mmol/L (21-31) Anion Gap 6 (5-13) Blood Urea 20 Nitrogen mg/dl (7-20) Creatinine 0.66 mg/dl (0.61-1. 24) Est Glomerular > 60 Filtrat mL/min (>60) Rate mL/min Glucose Level 247 mg/dl (70-220) Hemoglobin A1c 10.6 % (0-5.9) Calcium Level 8.4 mg/dl (8.4-10. 2) Phosphorus 3.6 Level mg/dl (2.5-4.9 ) Magnesium 1.9 Level mg/dl (1.7-2.5 ) Triglycerides 236 Level mg/dl (0-149) Cholesterol 107 Level mg/dl (100-200 ) LDL 39 mg/dl Cholesterol, Calculated HDL 21 Cholesterol mg/dl (30-78) Cholesterol/HDL 5.0 RATIO Ratio Thyroid 3.530 Stimulating MIU/L (0.465-4 Hormone (TSH) .680) Test 09/24/18 13:04 Bedside 250 Glucose mg/dL (70-220) MILLICENT HARRINGTON Sep 24, 2018 14:11
[2018-09-24] MEDS: CEFTRIAXONE 1 GM/50 ML (PMX) 50 ML IVPB SCH (14:36)
[2018-09-24] MEDS ORDERED: ACETAMINOPHEN 325 MG TAB PO PRN (15:00)
[2018-09-24] MEDS ORDERED: ONDANSETRON 4 MG INJ IV PRN (15:00)
[2018-09-24 15:24] VITALS: BP 132/86; PULSE 54; RESP 16
== END 2018-09-24 17:30 | disposition home or self-care (01) ==
LOC: E/R 08:27 → MS1 14:32 → SUATTDRO 14:41
PROVIDERS: ADMIT Hospitalist; ATTEND Hospitalist
DX: R10.9 Unspecified abdominal pain (principal); E11.9 Type 2 diabetes mellitus without complications
CPT/HCPCS: 36415; 74176; 80048; 80053; 80061; 81003; 82962; 83036; 83690; 83735; 84100; 84439; 84443; 85025; 87086; 96374; 96375; 96376; J0696; J1170; J1815; J1885; J2405; J7030; Q9967; Z7500; Z7502; Z7610; G0378

== ENCOUNTER 2018-10-25 09:49 | Emergency (ER) | payer MEDICAID ==
[~2018-10-25] VITALS: Wt 80.0 kg
[~2018-10-25 09:49] MED LIST: CYCL10TA7 PO; IBUP-1542 PO; METF-480 PO
[2018-10-25] MEDS ORDERED: CEPHALEXIN 500 MG CAP PO ONE (11:30)
[2018-10-25] MEDS ORDERED: PHENAZOPYRIDINE 100 MG TAB PO ONE (11:30)
[2018-10-25] MEDS ORDERED: METF850T13 PO (11:51)
[2018-10-25] MEDS ORDERED: PHEN-538 PO (12:04)
[2018-10-25] MEDS ORDERED: CEPH-443 PO (12:04)
[2018-10-25 12:17] VITALS: BP 127/88; PULSE 76; RESP 17
--- NOTE | 2018-10-25 13:20 | ERD ---
ER Documentation Chief Complaint Chief Complaint DYSURIA,HEMATURIA SINCE YESTERDAY HPI Patient is a 63-year-old male with diabetes who presents with pain with urination. He started with blood in his urine this morning as well. The pain with urination started yesterday. The urine has been foul-smelling. He says "I think I might have a urinary tract infection". He was previously admitted on September 23 for possible kidney stone. The patient denies fevers. He has had no treatment as of yet. He is not on blood thinning medications. Upon review of old medical record the patient had one previous visit on September 23. He does not have a primary doctor but was seen by Dr. Trinh. ROS All systems reviewed and are negative except as per history of present illness. Medications Home Meds Active Scripts Phenazopyridine Hcl* (Pyridium*) 200 Mg Tab, 200 MG PO TID PRN for URINARY PAIN, #6 TAB Prov:UMAIR OSMAN MD 10/25/18 Cephalexin* (Keflex*) 500 Mg Capsule, 500 MG PO BID for 7 Days, CAP Prov:UMAIR OSMAN MD 10/25/18 Cyclobenzaprine Hcl* (Cyclobenzaprine Hcl*) 10 Mg Tablet, 10 MG PO Q8, #90 TAB 3 Refills Prov:MILLICENT HARRINGTON S. 09/24/18 Ibuprofen* (Motrin*) 600 Mg Tab, 600 MG PO Q6H PRN for PAIN AND OR ELEVATED TEMP, #30 TAB Prov:MILLICENT HARRINGTON S. 09/24/18 Reported Medications Metformin Hcl* (Metformin Hcl*) 850 Mg Tablet, 425 MG PO WITH BREAKFAST DINNE, #60 TAB Patient have diarrhea when he take one tablet. 10/25/18 Discontinued Scripts Metformin* (Glucophage*) 850 Mg Tablet, 850 MG PO WITH BREAKFAST DINNE, #60 TAB 3 Refills Prov:MILLICENT HARRINGTON S. 09/24/18 Allergies Allergies: Coded Allergies: No Known Allergy (Unverified , 10/25/18) PMhx/Soc History of Surgery: Yes (inguinal hernia repair) Anesthesia Reaction: No Hx Neurological Disorder: No Hx Respiratory Disorders: No Hx Cardiac Disorders: No Hx Psychiatric Problems: No Hx Miscellaneous Medical Probl: No Hx Alcohol Use: Yes Hx Substance Use: No Hx Tobacco Use: Yes Smoking Status: Current every day smoker FmHx Family History: diabetes Physical Exam Vitals Vital Signs Date Temp Pulse Resp B/P (MAP) Pulse Ox O2 O2 Flow FiO2 Time Delivery Rate 10/25/18 98.1 76 17 127/88 99 Room Air 12:17 (101) 10/25/18 98.1 79 18 163/75 99 09:52 (104) Physical Exam Const: No acute distress Head: Atraumatic Eyes: Normal Conjunctiva ENT: Normal External Ears, Nose and Mouth. Neck: Full range of motion. No meningismus. Resp: Clear to auscultation bilaterally Cardio: Regular rate and rhythm, no murmurs Abd: Soft, non tender, non distended. Normal bowel sounds Skin: No petechiae or rashes Back: No midline or flank tenderness Ext: No cyanosis, or edema Neur: Awake and alert Psych: Normal Mood and Affect Results 24 hrs Laboratory Tests Test 10/25/18 11:15 Urine Color YELLOW Urine Clarity SLIGHTLY CLOUDY Urine pH 6.0 Urine Specific [place] 1.031 Urine Ketones TRACE mg/dL Urine Nitrite NEGATIVE mg/dL Urine Bilirubin NEGATIVE mg/dL Urine Urobilinogen NEGATIVE mg/dL Urine Leukocyte Esterase 2+ Edgardo/ul Urine Microscopic RBC > 182 /HPF Urine Microscopic WBC 81 /HPF Urine Bacteria FEW /HPF Urine Hemoglobin 3+ mg/dL Urine Glucose 3+ mg/dL Urine Total Protein 1+ mg/dl Current Medications Medications Dose Sig/Roshan Start Time Status Last (Trade) Ordered Route PRN Stop Time Admin Dose Reason Admin Cephalexin 500 mg ONCE ONCE 10/25/18 DC 10/25/18 (Keflex) PO 11:30 11:28 10/25/18 11:31 200 mg ONCE ONCE 10/25/18 DC 10/25/18 Phenazopyridi PO 11:30 11:28 ne HCl 10/25/18 11:31 (Pyridium) Procedures/MDM Smoking Cessation Therapy: Pt. was lectured for greater than 3 minutes on the health risks of continued smoking and the benefits of cessation. Patient is a 63-year-old male presents with hematuria. I believe the patient has acute cystitis which is likely the cause of his hematuria. He will be given antibiotics and Pyridium. He will need to follow-up with Dr. Trinh from urology and may require outpatient cystoscopy to rule out bladder cancer given his age. The patient can return for any worsening symptoms. I doubt sepsis and I do not believe patient requires admission to the hospital at this time. Departure Diagnosis: Primary Impression: Cystitis Additional Impressions: Hematuria Hematuria type: unspecified type Qualified Codes: R31.9 - Hematuria, unspecified Dysuria Condition: Fair Patient Instructions: Cystitis, Hematuria Referrals: SUSIE TRINH MD Additional Instructions: Specialist:Usted tiene mer condicin mdica que requiere que danielle a un especialista dentro de los prximos 1-2 ackerman.POR FAVOR,CON COSME SEGUIMIENTO DE PRIMARIA PHSICIAN refferal. SI USTED NO TIENE UN MDICO GENERAL Y / O USTED NO PUEDE PAGAR bora a un mdico,los siguientes ruff RECURSOS sido suministrado a usted. ES COSME RESPONSABILIDAD PARA SER VISTOS POR EL ESPECIALISTA: UMAIR OSMAN MD October 25, 2018 13:20
== END 2018-10-25 12:49 | disposition home or self-care (01) ==
LOC: E/R 09:49
DX: N30.90 Cystitis, unspecified without hematuria (principal); E11.9 Type 2 diabetes mellitus without complications; F17.210 Nicotine dependence, cigarettes, uncomplicated; Z79.84 Long term (current) use of oral hypoglycemic drugs
CPT/HCPCS: 81001; 87086; Z7502; Z7610; 99283